=== PATIENT | female | born 2005 | race Caucasian/White ===

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

== ENCOUNTER 2023-02-17 17:13 | Emergency (ER) | payer MEDICAID ==
[2023-02-17] MEDS ORDERED: Ibuprofen 800 MG Tab PO ONE (17:46)
[2023-02-17 20:06] VITALS: BP 101/68; PULSE 76
== END 2023-02-17 19:26 | disposition home or self-care (01) ==
LOC: JD.ED 17:13
DX: R07.89 Other chest pain (principal); J45.909 Unspecified asthma, uncomplicated; F17.210 Nicotine dependence, cigarettes, uncomplicated
CPT/HCPCS: 71046; 93005; 99285; A9270; 93010; 99283